=== PATIENT | female | born 1990 | race African-American/Black ===

== ENCOUNTER 2017-06-24 03:10 | Emergency (ER) | payer SELFPAY ==
[~2017-06-24] VITALS: Ht 170.2 cm; Wt 70.0 kg
[2017-06-24 03:18] VITALS: BP 112/64
[2017-06-24 03:42] LABS: CLARITY URINE CLEAR (CLEAR); COLOR URINE YELLOW (YELLOW); KETONES URINE 2+ (NEGATIVE); LEUKOCYTE ESTERASE URINE NEGATIVE (NEGATIVE); NITRITE URINE NEGATIVE (NEGATIVE); OCCULT BLOOD URINE NEGATIVE (NEGATIVE); PROTEIN URINE TRACE (NEGATIVE); SPECIFIC GRAVITY URINE 1.038 (1.005-1.030)
== END 2017-06-24 06:05 | disposition left against medical advice (07) ==
LOC: ER 04:14
DX: R10.9 Unspecified abdominal pain (principal); J45.909 Unspecified asthma, uncomplicated; Z53.21 Procedure and treatment not carried out due to patient leaving prior to being seen by health care provider
CPT/HCPCS: 81001; 81025